=== PATIENT | male | born 1995 | race Caucasian/White ===

== ENCOUNTER 2021-04-26 12:57 | Inpatient (IN) | payer OTHER, SELFPAY ==
[2021-04-26] VITALS (15 sets, daily range): BP systolic 124–157; BP diastolic 69–93; PULSE 58–109; RESP 15–16; TEMP 36.2; O2SAT 97–100
--- NOTE | ~2021-04-26 | US_ITS ---
US abdomen limited INDICATION: Pancreatitis PROCEDURE: Realtime right upper abdominal ultrasound. COMPARISON: No prior studies for comparison. FINDINGS: The pancreas is normal without focal mass or pancreatic ductal dilation. Liver echotexture is normal without focal mass or intrahepatic biliary dilatation. There is normal directional flow i n the portal vein. The gallbladder is normal without stones, gallbladder wall thickening or pericholecystic fluid. Comm on bile duct measures 5.3 mm. No sonographic Tobias's sign. IMPRESSION: 1: Normal limited abdominal ultrasound. Reviewed, dictated and finalized at location A. [employer]
--- NOTE | ~2021-04-26 | CT_ITS ---
EXAMINATION: CT abdomen pelvis w con DATE: 04/26/2021 19:06 INDICATION: Left upper quadrant pain TECHNIQUE: Computed tomography (CT) of the abdomen and pelvis was performed with 100 cc Omnipaque 350 intravenous contrast. The dose-length product was 673.31 mGy-cm. Automated exposure control and iter ative reconstruction technique were employed. COMPARISON: None. FINDINGS: Lung bases are unremarkable. Heart size is normal. No significant pleural or pericardial ef fusion. The liver, spleen, adrenal glands and kidneys are unremarkable. There is mild inflammatory ch anges surrounding the pancreatic head, suspicious for acute pancreatitis. Gallbladder is present. Non obstructive bowel gas pattern. No acute osseous abnormality. No significant vascular abnormality. No lymphadenopathy. No free air or free fluid. IMPRESSION: 1. Subtle peripancreatic fatty infiltration near the pancreatic head, suspicious for pancreatitis. Co rrelate clinically. Reviewed, dictated and finalized at location A. OLOGY TECH IMPRESSION: 1. Subtle peripancreatic fatty infiltration near the pancreatic head, suspiciou s for pancreatitis. Correlate clinically.
--- NOTE | ~2021-04-26 | XR_ITS ---
EXAMINATION: XR chest 2V DATE: 04/26/2021 13:43 INDICATION: Lower chest pain TECHNIQUE: PA and lateral views of the chest are obtained. COMPARISON: None available FINDINGS: The lungs are free of acute opacities. There is no pleural effusion or pneumothorax. The ca rdiomediastinal silhouette is normal. The visualized bones and soft tissues are unremarkable. IMPRESSION: 1. No acute cardiopulmonary abnormality. Reviewed, dictated and finalized at location A. [employer]
--- NOTE | 2021-04-26 12:58 | ECG_ITS ---
Measurements Intervals [place] Rate: 107 P: 61 FL: 139 QRS: 44 QRSD: 82 T: 27 QT: 316 QTc: 423 Interpretive Statements SINUS TACHYCARDIA BASELINE ARTIFACT- I, III ABNORMAL ECG Electronically Signed On 04-26-2021 13:22:11 [employer] by Cassius Mejia D.O.
[2021-04-26 13:23] LABS: Basophils Absolute Auto 0.1 K/mm3 (0.0-0.1); Basophils Percent Auto 0.5 % (0.2-1.2); Eosinophils Absolute Auto 0.1 K/mm3 (0-0.3); Hematocrit 45.7 % (42.0-52.0); Hemoglobin 15.9 g/dL (14.0-18.0); Immature Granulocyte Absolute 0.04 K/mm3 (0.00-0.031); Immature Granulocyte Percent A 0.4 % (0-0.5); Lymphocytes Absolute Auto 1.25 K/mm3 (0.9-3.2); Lymphocytes Percent Auto 11.1 % (18.3-44.2); Mean Corpuscular HGB Conc 34.8 g/dl (32-36); Mean Corpuscular Hemoglobin 31.1 pg (26-34); Mean Corpuscular Volume 89.4 fl (80-100); Mean Platelet Volume 10.1 fl (7.4-10.4); Monocytes Absolute Auto 1.1 K/mm3 (0.1-0.6); Monocytes Percent Auto 9.6 % (2.6-8.5); Neutrophils Absolute Auto 8.7 K/mm3 (1.3-6.7); Neutrophils Percent Auto 77.4 % (45.5-73.1); Platelet Count Result 250 k/mm3 (150-375); Red Blood Count 5.11 M/mm3 (4.6-6.20); Red Cell Distribution Width 12.5 % (11.5-14.5); White Blood Count 11.2 K/mm3 (4.5-10.0)
[2021-04-26 13:32] LABS: Alanine Aminotransferase 16 U/L (4-50); Albumin Level 5.1 g/dL (3.5-5.1); Alkaline Phosphatase 106 U/L (38-126); Anion Gap 10 mmol/L (8-16); Aspartate Amino Transferase 24 U/L (17-59); Bilirubin,Total 1.3 mg/dL (0.2-1.3); Blood Urea Nitrogen 19 mg/dL (9-20); Calcium 9.9 mg/dL (8.4-10.2); Carbon Dioxide 24 mmol/L (22-30); Chloride 101 mmol/L (98-107); Estimated CRCL calculation 129 ml/min; Estimated Glomerular Filt Rate > 60; Glucose 109 mg/dL (65-110); Lipase 42 U/L (23-300); Sodium 135 mmol/L (137-145)
[2021-04-26 13:37] LABS: Prothrombin Time 13.2 Seconds (11.1-14.7)
[2021-04-26 13:44] LABS: Troponin I < 0.012 ng/mL (0.000-0.034)
--- NOTE | 2021-04-26 17:56 | ED.ABDPAIN ---
HPI - Abdominal Pain General Chief Complaint: Abdominal Pain <Genia Deng PA-C - Last Filed: 04/26/21 22:27> Stated Complaint: left upper abd pain <Genia Deng PA-C - Last Filed: 04/26/21 22:27> Time Seen by Provider: 04/26/21 16:46 <Genia Deng PA-C - Last Filed: 04/26/21 22:27> Source: patient <Genia Deng PA-C - Last Filed: 04/26/21 22:27> Mode of arrival: ambulatory <Genia Deng PA-C - Last Filed: 04/26/21 22:27> Limitations: no limitations <Genia Deng PA-C - Last Filed: 04/26/21 22:27> History of Present Illness HPI narrative: This is a 25 year old male that presents to the ER for upper abdominal pain present since yesterday. Reports left upper abdominal pain/chest pain. Reports the pain is a dull ache. Worse with deep breathing. Reports shortness of breath because of the pain. Denies fever, vomiting, diarrhea, or dysuria. <Genia Deng PA-C - Last Filed: 04/26/21 22:27> Related Data Allergies/Adverse Reactions: Allergies Allergy/AdvReac Type Severity Reaction Status Date / Time No Known Allergies Allergy Verified 04/26/21 18:20 <Genia Deng PA-C - Last Filed: 04/26/21 22:27> Review of Systems Review of Systems: CONSTITUTIONAL: Denies fever CARDIOVASCULAR: Reports chest pain RESPIRATORY: Reports dyspnea. GASTROINTESTINAL: Reports abdominal pain. Denies nausea, vomiting, or diarrhea. GENITOURINARY: Denies dysuria <Genia Deng PA-C - Last Filed: 04/26/21 22:27> All systems reviewed & are unremarkable except as noted in HPI and below <Genia Deng PA-C - Last Filed: 04/26/21 22:27> [facility] Past Medical History Medical History: Medical History (Updated 04/26/21 @ 22:11 by Genia Deng PA-C) No active medical problems <Genia Deng PA-C - Last Filed: 04/26/21 22:27> Social History Social History: Social History Smoking status: Never smoker <Genia Deng PA-C - Last Filed: 04/26/21 22:27> Exam Narrative: GENERAL: Well-appearing, well-nourished, and in no acute distress. HEAD: Normocephalic, atraumatic. EYES: EOMI. CHEST: Clear to auscultation. No respiratory distress. No wheezes rales or rhonchi HEART: Regular rate and rhythm. No murmur heard. Normal peripheral pulses. ABDOMEN: Soft, nondistended, normal active bowel sounds. Mild tenderness to palpation throughout the left-sided abdomen, without guarding EXTREMITIES: Normal range of motion. No edema. SKIN: Warm, dry, no rash. NEURO: No focal deficits. Alert and oriented x3. 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 Recommends reassess after morphine, if still experiencing pain patient may be admitted <Genia Deng PA-C - Last Filed: 04/26/21 22:27> Date: 04/26/21 <Genia Deng PA-C - Last Filed: 04/26/21 22:27> Vital Signs Vital signs: Vital Signs Temperature 36.2 C L 04/26/21 13:08 Pulse Rate 109 H 04/26/21 13:08 Respiratory Rate 16 04/26/21 13:08 Blood Pressure 150/93 H 04/26/21 13:08 Pulse Oximetry 99 04/26/21 13:08 Temperature 36.2 C L 04/26/21 13:08 Pulse Rate 65 04/26/21 22:12 Respiratory Rate 15 04/26/21 22:12 Blood Pressure 124/69 04/26/21 22:12 Pulse Oximetry 99 04/26/21 22:15 <Genia Deng PA-C - Last Filed: 04/26/21 22:27> Vital Signs Temperature 36.2 C L 04/26/21 13:08 Pulse Rate 109 H 04/26/21 13:08 Respiratory Rate 16 04/26/21 13:08 Blood Pressure 150/93 H 04/26/21 13:08 Pulse Oximetry 99 04/26/21 13:08 Temperature 36.2 C L 04/26/21 13:08 Pulse Rate 65 04/26/21 22:12 Respiratory Rate 15 04/26/21 22:12 Blood Pressure 124/69
[2021-04-26 18:26] LABS: D Dimer 0.39 ug/mL (<0.48)
[2021-04-26] MEDS: SODIUM CHLORIDE 0.9% IV 1,000 ML 999 ML IV CONT ×2 (18:28→23:23)
[2021-04-26] MEDS: FAMOTIDINE 20 MG/2 ML VIAL IV PUSH (18:29)
[2021-04-26 19:00] LABS: Troponin I < 0.012 ng/mL (0.000-0.034)
[2021-04-26] MEDS: MORPHINE SULFATE (*CRX) 4 MG/ML INJ IV PUSH (20:51)
[2021-04-26] MEDS: ONDANSETRON INJ 4 MG/2 ML VIAL IV PUSH (20:51)
[2021-04-26 21:14] LABS: Add Urine Microscopic? YES; Appearance Urine Clear (Clear); Bilirubin Urine Negative (Negative); Blood Urine Negative (Negative); Color Urine Yellow (Yellow); Glucose Urine UA Negative (Negative); Ketones Urine 1+ mg/dL (Negative); Leukocyte Esterase Ur Negative LEU/UL (Negative); Mucus Urine Heavy /lpf; Nitrate Urine Negative (Negative); Protein Urine Negative (Negative); RBC Urine 0-2 /hpf (0-2); Squamous Epithelial Cell Urine Occasional /hpf (Few); Urobilinogen Urine Negative mg/dL (<2.0)
[2021-04-26 21:17] LABS: Specific Grav Ur > 1.060 (1.001-1.035)
[2021-04-26] MEDS: KETOROLAC 30 MG/ML VIAL (*BKC) IV PUSH (23:23)
[2021-04-27] MEDS: SODIUM CHLORIDE 0.9% IV 1,000 ML 125 ML IV CONT ×3 (00:54→16:29)
--- NOTE | 2021-04-27 00:56 | ADMGEN ---
This patient, Jesse Avila, was admitted to Medical Room 253-01. Patient/family oriented to hospital policies and general routines including ID bracelet, bed and alarms, visiting hours, pain management, procedures, bathroom and other care routines, personal items, smoking policy, room service/diet, and visiting hours. Information on how to activate the Rapid Response Team has been discussed. Patient/Family are encouraged to report perceived risks to care and to ask questions if they do not understand what they are told or what they should do.
[2021-04-27 01:33] VITALS: BMI 28.0
[2021-04-27 01:35] VITALS: BP 124/62; PULSE 64; RESP 20; TEMP 37; O2SAT 99
[2021-04-27 06:00] VITALS: BP 137/74; PULSE 83; RESP 21; TEMP 36.8; O2SAT 100
[2021-04-27] MEDS: MORPHINE SULFATE (*CRX) 4 MG/ML INJ IV PUSH (08:40)
[2021-04-27 09:27] LABS: Basophils Absolute Auto 0.1 K/mm3 (0.0-0.1); Basophils Percent Auto 0.4 % (0.2-1.2); Eosinophils Absolute Auto 0.1 K/mm3 (0-0.3); Eosinophils Percent Auto 0.7 % (0-4.4); Hematocrit 43.2 % (42.0-52.0); Hemoglobin 14.6 g/dL (14.0-18.0); Immature Granulocyte Absolute 0.04 K/mm3 (0.00-0.031); Immature Granulocyte Percent A 0.3 % (0-0.5); Lymphocytes Absolute Auto 1.47 K/mm3 (0.9-3.2); Lymphocytes Percent Auto 10.9 % (18.3-44.2); Mean Corpuscular HGB Conc 33.8 g/dl (32-36); Mean Corpuscular Hemoglobin 31.1 pg (26-34); Mean Corpuscular Volume 92.1 fl (80-100); Mean Platelet Volume 10.1 fl (7.4-10.4); Monocytes Absolute Auto 1.3 K/mm3 (0.1-0.6); Monocytes Percent Auto 9.8 % (2.6-8.5); Neutrophils Absolute Auto 10.5 K/mm3 (1.3-6.7); Neutrophils Percent Auto 77.9 % (45.5-73.1); Platelet Count Result 227 k/mm3 (150-375); Red Blood Count 4.69 M/mm3 (4.6-6.20); Red Cell Distribution Width 12.5 % (11.5-14.5); White Blood Count 13.4 K/mm3 (4.5-10.0)
[2021-04-27 09:36] LABS: Alanine Aminotransferase 14 U/L (4-50); Albumin Level 4.4 g/dL (3.5-5.1); Alkaline Phosphatase 97 U/L (38-126); Anion Gap 9 mmol/L (8-16); Aspartate Amino Transferase 23 U/L (17-59); Bilirubin,Total 1.4 mg/dL (0.2-1.3); Blood Urea Nitrogen 15 mg/dL (9-20); Calcium 9.3 mg/dL (8.4-10.2); Carbon Dioxide 20 mmol/L (22-30); Chloride 106 mmol/L (98-107); Estimated CRCL calculation 129 ml/min; Estimated Glomerular Filt Rate > 60; Glucose 99 mg/dL (65-110); Lipase 132 U/L (23-300); Potassium 3.9 mmol/L (3.4-5.0); Sodium 135 mmol/L (137-145)
[2021-04-27] MEDS: KETOROLAC 30 MG/ML VIAL (*BKC) IV PUSH (10:48)
--- NOTE | 2021-04-27 12:50 | PM.IMHP ---
H&P: HPI History of Present Illness Date/Time: 04/27/21 12:50 Pt is a previously healthy 25 yo male who presented to the hospital for evaluation of abdominal pain x 2 days. Pt states 2 days ago in the evening he was sitting on his couch when he developed epigastric pain which has been constant since that time. Pain is described as throbbing and is waxing and waning, sometimes radiates to his lower abdomen. Pain is worse w/ deep inspiration. No nausea, vomiting, diarrhea, fevers. No hx of gallstones or etoh use. No family hx of pancreatitis. Pt was found to have findings on CT suspicious for pancreatitis and is being admitted in this setting. Chief Complaint: abdominal pain Review of Systems Review of Systems: General: Denies fevers, chills, bodyaches Eyes: Denies vision changes or eye pain ENT: Denies nasal congestion or sore throat Respiratory: Denies cough or shortness of breath Cardiovascular: + chest pain w/ deep inspiration, denies palpitations or lower extremity edema Gastrointestinal: + abdominal pain, denies vomiting or diarrhea Genitourinary: Denies dysuria or urinary frequency Musculoskeletal: Denies back pain or muscle aches Neurological: Denies headache, paraesthesias, or motor weakness Integumentary: Denies rash or other skin lesions PMFSH Past Medical History Medical History No active medical problems Surgical History Surgical History (Updated 04/27/21 @ 12:58 by Leena Zamora PA-C) H/O hand surgery Family History Family History Other Unknown family medical history Social History Social History (Updated 04/27/21 @ 12:59 by Leena Zamora PA-C) Smoking status: Never smoker Alcohol intake: never Alcohol use details: very rare, maybe 1-2 beers once or twice per year Substance use: current Substance use type: marijuana Last use: 04/23/21 Spiritual care concerns: No Meds Home Medications and Allergies Home Medications Medication Instructions Recorded Confirmed Type No Home Medications 04/27/21 04/27/21 History Allergies Allergy/AdvReac Type Severity Reaction Status Date / Time No Known Allergies Allergy Verified 04/27/21 00:53 Vital Signs Vital Signs - 24 hr 04/26/21 13:08 04/26/21 15:06 04/26/21 18:36 Temperature 97.2 F L Pulse Rate 109 H 95 Respiratory Rate 16 Blood Pressure 150/93 H 157/86 H Pulse Oximetry 99 100 99 04/26/21 18:37 04/26/21 19:08 04/26/21 19:52 Temperature Pulse Rate Respiratory Rate Blood Pressure 129/87 Pulse Oximetry 99 100 98 04/26/21 20:01 04/26/21 20:26 04/26/21 20:30 Temperature Pulse Rate Respiratory Rate Blood Pressure Pulse Oximetry 98 97 100 04/26/21 21:03 04/26/21 21:23 04/26/21 21:31 Temperature Pulse Rate 58 L Respiratory Rate 16 Blood Pressure Pulse Oximetry 98 98 99 04/26/21 21:52 04/26/21 22:12 04/26/21 22:15 Temperature Pulse Rate 65 Respiratory Rate 15 Blood Pressure 124/69 Pulse Oximetry 98 99 99 04/27/21 01:35 04/27/21 06:00 Temperature 98.6 F 98.2 F Pulse Rate 64 83 Respiratory Rate 20 21 H Blood Pressure 124/62 137/74 Pulse Oximetry 99 100 Exam Narrative: General: No acute distress, non toxic appearing Eyes: PERRL, no scleral icterus HEENT: NCAT, external ears normal, MMM Respiratory: No respiratory distress, Lungs CTA bilaterally, no wheezing Cardiovascular: RRR, no murmur Abdominal: Soft, mildly tender diffusely, non distended, no rebound or guarding Musculoskeletal: Moves all 4 extremities, no edema Neurological: A/Ox3, speech normal, no facial asymmetry Skin: Warm, dry, no rashes Psychiatric: Normal affect, normal mood H&P: Results Labs Labs: Short CBC 04/26/21 04/27/21 Range/Units 13:10 09:05 WBC 11.2 H 13.4 H (4.5-10.0) K/mm3 Hgb 15.9 14.6 (14.0-18.
[2021-04-27 13:35] VITALS: BP 126/78; PULSE 81; RESP 20; TEMP 37.1; O2SAT 100
[2021-04-27] MEDS: HYDROmorphone HCL INJ (*CRX) 1 MG/ML SYR IV PUSH ×2 (14:27→18:33)
[2021-04-27 20:10] VITALS: BP 131/60; PULSE 119; RESP 20; TEMP 38.1; O2SAT 99
[2021-04-28] MEDS: SODIUM CHLORIDE 0.9% IV 1,000 ML 125 ML IV CONT ×3 (01:07→16:44)
[2021-04-28] MEDS: HYDROmorphone HCL INJ (*CRX) 1 MG/ML SYR IV PUSH ×5 (02:54→21:32)
[2021-04-28 04:20] VITALS: BP 125/63; PULSE 102; RESP 20; TEMP 36.7; O2SAT 99
[2021-04-28 05:23] LABS: Basophils Percent Auto 0.3 % (0.2-1.2); Eosinophils Percent Auto 0.1 % (0-4.4); Hematocrit 38.5 % (42.0-52.0); Hemoglobin 13.1 g/dL (14.0-18.0); Immature Granulocyte Absolute 0.04 K/mm3 (0.00-0.031); Immature Granulocyte Percent A 0.3 % (0-0.5); Lymphocytes Absolute Auto 0.67 K/mm3 (0.9-3.2); Lymphocytes Percent Auto 5.6 % (18.3-44.2); Mean Corpuscular Hemoglobin 30.4 pg (26-34); Mean Corpuscular Volume 89.3 fl (80-100); Mean Platelet Volume 10.1 fl (7.4-10.4); Monocytes Absolute Auto 1.2 K/mm3 (0.1-0.6); Neutrophils Absolute Auto 10.1 K/mm3 (1.3-6.7); Neutrophils Percent Auto 83.7 % (45.5-73.1); Platelet Count Result 195 k/mm3 (150-375); Red Blood Count 4.31 M/mm3 (4.6-6.20); Red Cell Distribution Width 11.9 % (11.5-14.5)
[2021-04-28 05:39] LABS: Alanine Aminotransferase 11 U/L (4-50); Alkaline Phosphatase 85 U/L (38-126); Anion Gap 10 mmol/L (8-16); Aspartate Amino Transferase 21 U/L (17-59); Bilirubin,Total 1.3 mg/dL (0.2-1.3); Blood Urea Nitrogen 11 mg/dL (9-20); Calcium 8.8 mg/dL (8.4-10.2); Carbon Dioxide 19 mmol/L (22-30); Chloride 101 mmol/L (98-107); Estimated CRCL calculation 144 ml/min; Estimated Glomerular Filt Rate > 60; Glucose 90 mg/dL (65-110); Lipase 334 U/L (23-300); Potassium 3.6 mmol/L (3.4-5.0); Sodium 130 mmol/L (137-145)
[2021-04-28] MEDS: ONDANSETRON INJ 4 MG/2 ML VIAL IV PUSH (08:58)
--- NOTE | 2021-04-28 12:41 | PM.IMPN ---
Progress Note: A&P Assessment and Plan (1) Acute pancreatitis: Qualifiers: Acute pancreatitis complication: no infection or necrosis Pancreatitis type: unspecified pancreatitis type Qualified Code(s): K85.90 - Acute pancreatitis without necrosis or infection, unspecified Code(s): K85.90 - Acute pancreatitis without necrosis or infection, unspecified Status: Acute Assessment and Plan: Pt to continue to be NPO with iv fluids and pain control Continue to monitor lipase levels, and advance diet and dc in 1-2 days time No other significant medical problems Follow lipid panel. Subjective Date/time seen: 04/28/21 12:41 Interval history: Pt here for pancreatitis, lipase is 300 today pt still having some abdominal pains in RUQ. Denies alcholol use US GB shows no Gallstones, I awilda order a ipid panel to check his triglycerides, hopeful DC in 1-2 days time Review of Systems Review of Systems: All systems reviewed & are unremarkable except as noted in HPI and below Exam Const: General: cooperative and healthy appearing; No in distress Nutritional Appearance: overweight Orientation/consciousness: oriented to person HENMT: Head: normal to inspection Resp: Effort & Inspection: no respiratory distress Auscultation: no rhonchi and no wheezes Cardio: Rate: regular rate Rhythm: regular rhythm GI: Inspection: normal to inspection GI Palp: Yes abdominal tenderness (over RUQ ), No Abdominal aortic bruit present, Yes Soft to palpation, No Firmness to palpation present (GI), Yes Tenderness to palpation present (GI), No Guarding due to palpation present (GI), No Rigid due to palpation, No No hepatosplenomegaly present, No Hepatosplenomegaly present, No Hepatomegaly present, No Splenomegaly present, No Hernia present, No Palpable mass present, No Pulsatile mass present, No Aortic enlargement present, No Ascites present, No Carnett's sign positive, No Rebound tenderness present, No Bladder palpation abnormal and No Other GI palpation findings present Auscultation: normal bowel sounds Neuro: General: oriented to person Objective Data Vital Signs Vital Signs: Vital Signs - 24 hr 04/27/21 13:35 04/27/21 20:10 04/28/21 04:20 Temperature 37.1 C 38.1 C H 36.7 C Pulse Rate 81 119 H 102 H Respiratory Rate 20 20 20 Blood Pressure 126/78 131/60 125/63 Pulse Oximetry 100 99 99 Intake/Output Intake/Output: Intake & Output 04/25/21 04/26/21 04/27/21 04/28/21 23:59 23:59 23:59 23:59 Intake Total 1100 2200 2000 Output Total 400 Balance 1100 1800 2000 Meds/Results Medications: Active Medications Generic Name Dose Route Start Last Admin Trade Name Freq PRN Reason Stop Dose Admin Hydromorphone HCl 1 mg 04/27/21 10:30 04/28/21 08:52 Hydromorphone Hcl Inj (*Crx) 1 Mg/Ml Syr IV PUSH 1 mg Q4H PRN Administration Pain Rated 7-10 Sodium Chloride 1,000 mls @ 125 mls/hr 04/26/21 22:05 04/28/21 08:51 Normal Saline Iv IV CONT 125 mls/hr .Q8H MARYSOL Administration Ondansetron HCl 4 mg 04/26/21 22:01 04/28/21 08:58 Ondansetron Inj 4 Mg/2 Ml Vial IV PUSH 4 mg Q4H PRN Administration Nausea Radiology Results: ITS Impressions Chest X-Ray 04/26/21 14:02 IMPRESSION: 1. No acute cardiopulmonary abnormality. Abdomen/Pelvis CT 04/26/21 19:09 IMPRESSION: 1. Subtle peripancreatic fatty infiltration near the pancreatic head, suspicious for pancreatitis. Correlate clinically. Abdomen Ultrasound 04/27/21 15:20 IMPRESSION: 1: Normal limited abdominal ultrasound. Labs Labs: Laboratory Results - last 24 hr 04/28/21 04/28/21 04:58 04:58 WBC 12.0 H RBC 4.31 L Hgb 13.1 L Hct 38.5 L MCV 89.3 MCH 30.4 MCHC 34.0 RDW 11.9 Plt Count 195 MPV 10.1 Immature Gran % (Auto) 0.3 Neut % (Auto) 83.7 H Lymph % (Auto) 5.6 L [place] % (Auto) 10.0 H Eos % (Auto) 0.1 Baso % (Auto) 0.3 Lymph # (Auto) 0.67 L
[2021-04-28 15:00] VITALS: BP 127/68; PULSE 90; RESP 20; TEMP 36.6; O2SAT 99
[2021-04-28] MEDS: ACETAMINOPHEN 325 MG TABLET 650 MG PO (17:09)
[2021-04-28 19:54] VITALS: BP 122/57; PULSE 63; RESP 16; TEMP 36.4; O2SAT 100
[2021-04-29] MEDS: SODIUM CHLORIDE 0.9% IV 1,000 ML 125 ML IV CONT ×3 (00:45→18:05)
[2021-04-29] MEDS: HYDROmorphone HCL INJ (*CRX) 1 MG/ML SYR IV PUSH ×4 (01:34→21:24)
[2021-04-29 03:55] VITALS: BP 123/65; PULSE 77; RESP 17; TEMP 36.6; O2SAT 98
[2021-04-29 05:50] LABS: Cholesterol 129 mg/dL (0-200); HDL Direct 24 mg/dL; Lipase 76 U/L (23-300); Triglycerides 95 mg/dL (<150)
[2021-04-29 06:01] LABS: LDL Cholesterol Direct 73 mg/dL
[2021-04-29] MEDS: ENOXAPARIN 40 MG/0.4 ML SYRINGE SUB-Q (09:17)
[2021-04-29 09:20] LABS: Basophils Absolute Auto 0.1 K/mm3 (0.0-0.1); Basophils Percent Auto 0.5 % (0.2-1.2); Eosinophils Absolute Auto 0.2 K/mm3 (0-0.3); Eosinophils Percent Auto 1.4 % (0-4.4); Hematocrit 38.6 % (42.0-52.0); Hemoglobin 13.1 g/dL (14.0-18.0); Immature Granulocyte Absolute 0.03 K/mm3 (0.00-0.031); Immature Granulocyte Percent A 0.3 % (0-0.5); Lymphocytes Absolute Auto 1.11 K/mm3 (0.9-3.2); Lymphocytes Percent Auto 10.2 % (18.3-44.2); Mean Corpuscular HGB Conc 33.9 g/dl (32-36); Mean Corpuscular Hemoglobin 31.1 pg (26-34); Mean Corpuscular Volume 91.7 fl (80-100); Mean Platelet Volume 10.9 fl (7.4-10.4); Monocytes Absolute Auto 1.2 K/mm3 (0.1-0.6); Monocytes Percent Auto 11.1 % (2.6-8.5); Neutrophils Absolute Auto 8.3 K/mm3 (1.3-6.7); Neutrophils Percent Auto 76.5 % (45.5-73.1); Platelet Count Result 195 k/mm3 (150-375); Red Blood Count 4.21 M/mm3 (4.6-6.20); Red Cell Distribution Width 12.3 % (11.5-14.5); White Blood Count 10.9 K/mm3 (4.5-10.0)
[2021-04-29 09:29] LABS: Alanine Aminotransferase 8 U/L (4-50); Albumin Level 3.4 g/dL (3.5-5.1); Alkaline Phosphatase 80 U/L (38-126); Anion Gap 10 mmol/L (8-16); Aspartate Amino Transferase 20 U/L (17-59); Bilirubin,Total 0.8 mg/dL (0.2-1.3); Blood Urea Nitrogen 8 mg/dL (9-20); Carbon Dioxide 21 mmol/L (22-30); Chloride 104 mmol/L (98-107); Estimated CRCL calculation 144 ml/min; Estimated Glomerular Filt Rate > 60; Glucose 90 mg/dL (65-110); Potassium 4.1 mmol/L (3.4-5.0); Sodium 135 mmol/L (137-145)
--- NOTE | 2021-04-29 12:47 | PM.IMPN ---
Progress Note: A&P Assessment and Plan (1) Acute pancreatitis: Qualifiers: Acute pancreatitis complication: no infection or necrosis Pancreatitis type: unspecified pancreatitis type Qualified Code(s): K85.90 - Acute pancreatitis without necrosis or infection, unspecified Code(s): K85.90 - Acute pancreatitis without necrosis or infection, unspecified Status: Acute Assessment and Plan: -as noted on CT abd/pelv -lipase and LFTs WNL, lipid panel WNL, RUQ US WNL -etiology unclear, no etoh use, no gallstones, no family history, does not take any medications -Will transition to clear liquids today as tolerated -Slow down IVF, dc when tolerating clears well -Pain medication as needed -Continue to monitor lipase levels and advance diet Subjective Date/time seen: 04/29/21 12:47 Interval history: Previously healthy 25 yo male admitted for acute pancreatitis. Overall he states he is doing better, however early this morning he had sudden onset very sharp epigastric pain. It has mostly resolved at this time. No nausea/vomiting. He is still NPO with ice chips only. Review of Systems Review of Systems: General: Denies fevers, chills, bodyaches Eyes: Denies vision changes or eye pain ENT: Denies nasal congestion or sore throat Respiratory: Denies cough or shortness of breath Cardiovascular: deneis chest pain, denies palpitations or lower extremity edema Gastrointestinal: + abdominal pain, denies vomiting or diarrhea, no BM yet Genitourinary: Denies dysuria or urinary frequency Musculoskeletal: Denies back pain or muscle aches Neurological: Denies headache, paraesthesias, or motor weakness Integumentary: Denies rash or other skin lesions Exam Narrative: General: No acute distress, non toxic appearing Eyes: PERRL, no scleral icterus HEENT: NCAT, external ears normal, MMM Respiratory: No respiratory distress, Lungs CTA bilaterally, no wheezing Cardiovascular: RRR, no murmur Abdominal: Soft, mild epigastric tenderness, non distended, no rebound or guarding Musculoskeletal: Moves all 4 extremities, no edema Neurological: A/Ox3, speech normal, no facial asymmetry Skin: Warm, dry, no rashes Psychiatric: Normal affect, normal mood Objective Data Vital Signs Vital Signs: Vital Signs - 24 hr 04/28/21 15:00 04/28/21 19:54 04/29/21 03:55 Temperature 97.8 F 97.5 F L 97.9 F Pulse Rate 90 63 77 Respiratory Rate 20 16 17 Blood Pressure 127/68 122/57 L 123/65 Pulse Oximetry 99 100 98 Intake/Output Intake/Output: Intake & Output 04/26/21 04/27/21 04/28/21 04/29/21 23:59 23:59 23:59 23:59 Intake Total 1100 2200 3000 2000 Output Total 400 Balance 1100 1800 3000 2000 Meds/Results Medications: Active Medications Generic Name Dose Route Start Last Admin Trade Name Freq PRN Reason Stop Dose Admin Acetaminophen 650 mg 04/28/21 16:59 04/28/21 17:09 Acetaminophen 325 Mg Tablet PO 650 mg Q6H PRN Administration Mild Pain (1-3) or Fever Enoxaparin Sodium 40 mg 04/29/21 09:00 04/29/21 09:17 Enoxaparin 40 Mg/0.4 Ml Syringe SUB-Q 40 mg DAILY MARYSOL Administration Hydromorphone HCl 1 mg 04/27/21 10:30 04/29/21 11:19 Hydromorphone Hcl Inj (*Crx) 1 Mg/Ml Syr IV PUSH 1 mg Q4H PRN Administration Pain Rated 7-10 Sodium Chloride 1,000 mls @ 125 mls/hr 04/26/21 22:05 04/29/21 09:16 Normal Saline Iv IV CONT 125 mls/hr .Q8H MARYSOL Administration Ondansetron HCl 4 mg 04/26/21 22:01 04/28/21 08:58 Ondansetron Inj 4 Mg/2 Ml Vial IV PUSH 4 mg Q4H PRN Administration Nausea Radiology Results: ITS Impressions Chest X-Ray 04/26/21 14:02 IMPRESSION: 1. No acute cardiopulmonary abnormality. Abdomen/Pelvis CT 04/26/21 19:09 IMPRESSION: 1. Subtle peripancreatic fatty infiltration near the pancreatic head, suspicious for pancreatitis. Correlate clinically. Abdomen Ultrasound 04/27/21 15:20 IMPRESSION: 1: N
[2021-04-29 19:00] VITALS: BP 127/68; PULSE 80; RESP 16; TEMP 36.4; O2SAT 99
[2021-04-29] MEDS: ACETAMINOPHEN 325 MG TABLET 650 MG PO (21:29)
[2021-04-30 04:15] VITALS: BP 127/70; PULSE 99; RESP 14; TEMP 36.4; O2SAT 99
[2021-04-30] MEDS: HYDROmorphone HCL INJ (*CRX) 1 MG/ML SYR IV PUSH (04:23)
[2021-04-30] MEDS: SODIUM CHLORIDE 0.9% IV 1,000 ML 125 ML IV CONT ×3 (04:25→22:08)
[2021-04-30 07:01] LABS: Basophils Absolute Auto 0.1 K/mm3 (0.0-0.1); Basophils Percent Auto 0.5 % (0.2-1.2); Eosinophils Absolute Auto 0.5 K/mm3 (0-0.3); Eosinophils Percent Auto 4.7 % (0-4.4); Hematocrit 38.1 % (42.0-52.0); Hemoglobin 13.1 g/dL (14.0-18.0); Immature Granulocyte Absolute 0.05 K/mm3 (0.00-0.031); Immature Granulocyte Percent A 0.5 % (0-0.5); Lymphocytes Absolute Auto 1.18 K/mm3 (0.9-3.2); Lymphocytes Percent Auto 12.2 % (18.3-44.2); Mean Corpuscular HGB Conc 34.4 g/dl (32-36); Mean Corpuscular Hemoglobin 30.4 pg (26-34); Mean Corpuscular Volume 88.4 fl (80-100); Mean Platelet Volume 10.1 fl (7.4-10.4); Monocytes Percent Auto 10.3 % (2.6-8.5); Neutrophils Absolute Auto 6.9 K/mm3 (1.3-6.7); Neutrophils Percent Auto 71.8 % (45.5-73.1); Platelet Count Result 245 k/mm3 (150-375); Red Blood Count 4.31 M/mm3 (4.6-6.20); White Blood Count 9.7 K/mm3 (4.5-10.0)
[2021-04-30 07:06] LABS: Alanine Aminotransferase 10 U/L (4-50); Albumin Level 3.7 g/dL (3.5-5.1); Alkaline Phosphatase 98 U/L (38-126); Anion Gap 10 mmol/L (8-16); Aspartate Amino Transferase 19 U/L (17-59); Blood Urea Nitrogen 7 mg/dL (9-20); Calcium 8.9 mg/dL (8.4-10.2); Carbon Dioxide 23 mmol/L (22-30); Chloride 100 mmol/L (98-107); Estimated CRCL calculation 163 ml/min; Estimated Glomerular Filt Rate > 60; Glucose 88 mg/dL (65-110); Lipase 56 U/L (23-300); Potassium 3.4 mmol/L (3.4-5.0); Sodium 133 mmol/L (137-145)
[2021-04-30] MEDS: ENOXAPARIN 40 MG/0.4 ML SYRINGE SUB-Q (09:33)
--- NOTE | 2021-04-30 11:04 | PM.IMPN ---
Progress Note: A&P Assessment and Plan (1) Acute pancreatitis: Qualifiers: Acute pancreatitis complication: no infection or necrosis Pancreatitis type: unspecified pancreatitis type Qualified Code(s): K85.90 - Acute pancreatitis without necrosis or infection, unspecified Code(s): K85.90 - Acute pancreatitis without necrosis or infection, unspecified Status: Acute Assessment and Plan: -as noted on CT abd/pelv -lipase and LFTs WNL, lipid panel WNL, RUQ US WNL -etiology unclear, no etoh use, no gallstones, no family history, does not take any medications -Will transition to clear liquids as tolerated -Slow down IVF, dc when tolerating clears well -Pain medication as needed, transition to oral when appropriate -Continue to monitor lipase levels and advance diet Subjective Date/time seen: 04/30/21 11:04 Interval history: Previously healthy 25 yo male admitted for acute pancreatitis. Pt is feeling better at this time. He had a little bit of pain this morning but this has resolved. He was switched to clears yesterday but states he only had a few sips. He will try to push more liquids today. No nausea, vomiting. Has not had a BM yet. Review of Systems Review of Systems: General: Denies fevers Eyes: Denies vision changes ENT: Denies nasal congestion or sore throat Respiratory: Denies cough or shortness of breath Cardiovascular: Denies chest pain or lower extremity edema Gastrointestinal: + abdominal pain, denies vomiting or diarrhea Genitourinary: Denies dysuria Musculoskeletal: Denies back pain Neurological: Denies headache or motor weakness Integumentary: Denies rash Exam Narrative: General: No acute distress, non toxic appearing Eyes: PERRL, no scleral icterus HEENT: NCAT, external ears normal, MMM Respiratory: No respiratory distress, Lungs CTA bilaterally, no wheezing Cardiovascular: RRR, no murmur Abdominal: Soft, mild epigastric tenderness, non distended, no rebound or guarding Musculoskeletal: Moves all 4 extremities, no edema Neurological: A/Ox3, speech normal, no facial asymmetry Skin: Warm, dry, no rashes Psychiatric: Normal affect, normal mood Objective Data Vital Signs Vital Signs: Vital Signs - 24 hr 04/29/21 19:00 04/30/21 04:15 Temperature 97.6 F 97.5 F L Pulse Rate 80 99 Respiratory Rate 16 14 Blood Pressure 127/68 127/70 Pulse Oximetry 99 99 Intake/Output Intake/Output: Intake & Output 04/27/21 04/28/21 04/29/21 04/30/21 23:59 23:59 23:59 23:59 Intake Total 2200 3000 3750 1000 Output Total 400 Balance 1800 3000 3750 1000 Meds/Results Medications: Active Medications Generic Name Dose Route Start Last Admin Trade Name Freq PRN Reason Stop Dose Admin Acetaminophen 650 mg 04/28/21 16:59 04/29/21 21:29 Acetaminophen 325 Mg Tablet PO 650 mg Q6H PRN Administration Mild Pain (1-3) or Fever Enoxaparin Sodium 40 mg 04/29/21 09:00 04/30/21 09:33 Enoxaparin 40 Mg/0.4 Ml Syringe SUB-Q 40 mg DAILY MARYSOL Administration Hydromorphone HCl 1 mg 04/27/21 10:30 04/30/21 04:23 Hydromorphone Hcl Inj (*Crx) 1 Mg/Ml Syr IV PUSH 1 mg Q4H PRN Administration Pain Rated 7-10 Sodium Chloride 1,000 mls @ 75 mls/hr 04/26/21 22:05 04/30/21 04:25 Normal Saline Iv IV CONT 125 mls/hr .[id number] MARYSOL Administration Ondansetron HCl 4 mg 04/26/21 22:01 04/28/21 08:58 Ondansetron Inj 4 Mg/2 Ml Vial IV PUSH 4 mg Q4H PRN Administration Nausea Radiology Results: ITS Impressions Chest X-Ray 04/26/21 14:02 IMPRESSION: 1. No acute cardiopulmonary abnormality. Abdomen/Pelvis CT 04/26/21 19:09 IMPRESSION: 1. Subtle peripancreatic fatty infiltration near the pancreatic head, suspicious for pancreatitis. Correlate clinically. Abdomen Ultrasound 04/27/21 15:20 IMPRESSION: 1: Normal limited abdominal ultrasound. Labs Labs: Laboratory Results - la
[2021-04-30 14:00] VITALS: BP 134/64; PULSE 69; RESP 16; TEMP 36.7; O2SAT 100
[2021-04-30 20:39] VITALS: BP 135/69; PULSE 83; RESP 18; TEMP 36.6; O2SAT 100
[2021-04-30] MEDS: oxyCODONE/ACETAMINOPHEN (*CRX) 5-325 MG TABLET 1 TABLET PO (22:08)
[2021-05-01 04:33] VITALS: BP 120/62; PULSE 66; RESP 16; TEMP 37.1; O2SAT 98
[2021-05-01 05:18] LABS: Basophils Percent Auto 0.4 % (0.2-1.2); Eosinophils Absolute Auto 0.7 K/mm3 (0-0.3); Eosinophils Percent Auto 6.9 % (0-4.4); Hematocrit 37.1 % (42.0-52.0); Immature Granulocyte Absolute 0.04 K/mm3 (0.00-0.031); Immature Granulocyte Percent A 0.4 % (0-0.5); Lymphocytes Absolute Auto 1.36 K/mm3 (0.9-3.2); Lymphocytes Percent Auto 14.5 % (18.3-44.2); Mean Corpuscular Hemoglobin 30.7 pg (26-34); Mean Corpuscular Volume 87.5 fl (80-100); Mean Platelet Volume 9.7 fl (7.4-10.4); Monocytes Percent Auto 10.3 % (2.6-8.5); Neutrophils Absolute Auto 6.4 K/mm3 (1.3-6.7); Neutrophils Percent Auto 67.5 % (45.5-73.1); Platelet Count Result 275 k/mm3 (150-375); Red Blood Count 4.24 M/mm3 (4.6-6.20); White Blood Count 9.4 K/mm3 (4.5-10.0)
[2021-05-01 05:28] LABS: Alanine Aminotransferase 11 U/L (4-50); Albumin Level 3.6 g/dL (3.5-5.1); Alkaline Phosphatase 113 U/L (38-126); Anion Gap 10 mmol/L (8-16); Aspartate Amino Transferase 21 U/L (17-59); Blood Urea Nitrogen 6 mg/dL (9-20); Calcium 8.9 mg/dL (8.4-10.2); Carbon Dioxide 27 mmol/L (22-30); Chloride 100 mmol/L (98-107); Estimated CRCL calculation 163 ml/min; Estimated Glomerular Filt Rate > 60; Glucose 96 mg/dL (65-110); Lipase 48 U/L (23-300); Potassium 3.3 mmol/L (3.4-5.0); Sodium 137 mmol/L (137-145)
[2021-05-01] MEDS: ENOXAPARIN 40 MG/0.4 ML SYRINGE SUB-Q (08:17)
--- NOTE | 2021-05-01 09:28 | PM.DS ---
DS: Admitting Diagnosis Discharge Date 05/01/21 Admitting Diagnosis pancreatitis DS: Discharge Diagnosis Discharge Diagnosis (1) Acute pancreatitis: Qualifiers: Acute pancreatitis complication: no infection or necrosis Pancreatitis type: unspecified pancreatitis type Qualified Code(s): K85.90 - Acute pancreatitis without necrosis or infection, unspecified Code(s): K85.90 - Acute pancreatitis without necrosis or infection, unspecified Status: Acute Assessment and Plan: -as noted on CT abd/pelv -lipid panel and LFTs WNL -lipase initially mildly elevated but now normalized -RUQ US WNL without gallstones -etiology unclear, no etoh use, no gallstones, no family history, does not take any medications -pt was given IVF and pain medication as needed. Diet was advanced slowly. At this time he is tolerating a low fat diet without difficulty. He is having normal bowel movements. -vitals stable. labs unremarkable. pt being discharged home in stable condition. He was given counseling on avoidance of etoh in the future to avoid possible recurrence. All questions and concerns were addressed. (2) Hypokalemia: Code(s): E87.6 - Hypokalemia Status: Acute Assessment and Plan: -very mild at 3.3 -will give one dose of 40 PO KCL prior to discharge -repeat labs in 1 week DS: Summary Hospital Course Reason for hospitalization: Previously healthy 25 yo male admitted for acute pancreatitis. Please see HPI for further details. Hospital Course: please see above for details of hospital course Status at Discharge Cognitive/behavioral status at discharge: stable Functional status at discharge: independent ambulation Overall status at discharge: patient is progressing back to baseline Time Spent with Patient Time attestation: Total time spent providing and/or coordinating discharge services: 32 Time spent: Greater than 30 minutes Exam Narrative: General: No acute distress, non toxic appearing Eyes: PERRL, no scleral icterus HEENT: NCAT, external ears normal, MMM Respiratory: No respiratory distress, Lungs CTA bilaterally, no wheezing Cardiovascular: RRR, no murmur Abdominal: Soft, non tender, non distended, no rebound or guarding Musculoskeletal: Moves all 4 extremities, no edema Neurological: A/Ox3, speech normal, no facial asymmetry Skin: Warm, dry, no rashes Psychiatric: Normal affect, normal mood DS: Data Data Completed and Pending Labs on day of discharge: Labs from last 24 hours 05/01/21 05/01/21 04:43 04:43 WBC 9.4 RBC 4.24 L Hgb 13.0 L Hct 37.1 L MCV 87.5 MCH 30.7 MCHC 35.0 RDW 12.0 Plt Count 275 MPV 9.7 Immature Gran % (Auto) 0.4 Neut % (Auto) 67.5 Lymph % (Auto) 14.5 L [place] % (Auto) 10.3 H Eos % (Auto) 6.9 H Baso % (Auto) 0.4 Lymph # (Auto) 1.36 [place] # (Auto) 1.0 H Eos # (Auto) 0.7 H Baso # (Auto) 0.0 Abs Immat Gran (auto) 0.04 H Absolute Neuts (auto) 6.4 Absolute Nucleated RBC 0.0 Nucleated RBC % 0.0 Sodium 137 Potassium 3.3 L Chloride 100 Carbon Dioxide 27 Anion Gap 10 BUN 6 L Creatinine 0.70 Estim Creat Clear Calc 163 Estimated GFR > 60 Glucose 96 Calcium 8.9 Total Bilirubin 1.0 AST 21 ALT 11 Alkaline Phosphatase 113 Total Protein 6.0 L Albumin 3.6 Lipase 48 Discharge Plan Discharge Attending physician on discharge: Esthela Brown Consulting providers: Genia Deng Discharging Clinician: Leena Zamora Anticipated Discharge Date/Time: 05/01/21 09:35 Patient Disposition: Home, Self-Care Activity: may shower Diet: low fat Discharge Instructions: You may take tylenol or ibuprofen as needed for pain. You may also take the hydrocodone provided for breakthrough pain. Please be sure to stay hydrated with plenty of fluids. You should maintain a low fat diet and avoid alcohol to prevent recurrence of your evans
[2021-05-01] MEDS: POTASSIUM CHLORIDE 20 MEQ TABLET 40 MEQ PO (10:15)
== END 2021-05-01 10:20 | disposition home or self-care (01) | DRG 440 ==
LOC: ANHED 22:11 → ANH2MED 22:52
PROVIDERS: Emergency Medicine; Physician Assistant; Admitting Provider Internal Medicine; Emergency Provider Family Medicine; PCP Emergency Medicine; Visit Provider Family Medicine
DX: K85.90 Acute pancreatitis without necrosis or infection, unspecified (principal); F12.90 Cannabis use, unspecified, uncomplicated; E87.6 Hypokalemia
CPT/HCPCS: 36415; 71046; 74177; 76705; 80053; 80061; 81001; 83690; 84484; 85025; 85380; 85610; 85730; 93005; 96360; 96361; 96365; 96372; 96374; 96375; 96376; 99285; A9270; G0378; J0131; J1170; J1650; J1885; J2270; J2405; J7030; Q9967

== ENCOUNTER 2024-08-17 08:13 | Emergency (ER) | payer OTHER, SELFPAY ==
[2024-08-17] VITALS (7 sets, daily range): BP systolic 137–159; BP diastolic 83–94; PULSE 71–102; RESP 11–20; O2SAT 97–99
--- NOTE | ~2024-08-17 | XR_ITS ---
Clinical Indication: Chest pain PA and lateral views of the chest: Comparison: 04/26/2021 Findings: The lungs are clear, without evidence of focal consolidation or pleural effusion. Cardiome diastinal silhouette is within normal limits. Bones and soft tissues are unremarkable. Impression: Normal chest. Reviewed, dictated and finalized at location . Impression: Normal chest.
--- NOTE | 2024-08-17 08:18 | ECG_ITS ---
Test Date: 2024-08-17 08:25:45 Measurements Intervals [place] Rate: 103 P: 60 WA: 131 QRS: 61 QRSD: 85 T: 42 QT: 329 QTc: 431 Interpretive Statements SINUS TACHYCARDIA POSSIBLE LEFT ATRIAL ENLARGEMENT BASELINE ARTIFACT- II, III BORDERLINE ECG No previous ECG available for comparison Electronically Signed On 08-17-2024 08:26:48 CDT by Cassius Mejia D.O.
--- OUTSIDE RECORDS SUMMARY | 2024-08-17 08:25 | XMS_ITS | Clinical Summary ---
Author Organization [facility] Address [address] [place] [address] Care Team Providers Care Cooker Cleaner Name Role Phone Unavailable Primary Care Provider Unavailabl e Source Comments [facility],non-owned Affiliates and Associated Physician Practices is amultiple site organization consisting of ambulatory clinics and hospital sitesin [place], [place], [place] and [place]. This disclosure is being madepursuant to the Care Everywhere program and may not contain all information available regarding this patient. Last updated 18.[employer] [facility] Allergies No known active allergies Medications Be aware that medications may not be up to date on this document. Always verify current medications with the patient. No known medications Active Problems No known active problems Immunizations Name Administration Dates Next Due DTaP VACCINE IM (6wk-6yrs) 11/26/2001,,1996,08/27,1996 HEP A PEDS 2 DOSE 10/28/2012,11/30/2011 HEP B VACCINE, PED/ADOL 01/15/1997,1996, HIB-PRP-T 4 DOSE 11/04/1997, 7,1996,07/02 Human Papilloma Virus Sally valent Vaccine 12/18/2013,10/28/2012 MENINGOCOCAL MENINGITIS 11/22/2010 MENINGOCOCCAL ACWY (MCV4P) VAC IM 11/23/2008 MMR 11/26/2001,11/04/1997 POLIO IPV 11/26/2001,1996,1996 POLIO OPV 1996 TDAP (7yrs+) 11/23/2008 VARICELLA 11/30/2011,05/04/1997 Family History Medical History Relation Name Comments Diabetes Maternal Grandfather Hypertension Maternal Grandfather Arthritis - Osteo Maternal Grandmother Relation Name Status Comments Brother Alive Father Alive Maternal Grandfather Alive Maternal Grandmother Alive Mother Alive Paternal Grandfather Alive Paternal Grandmother Alive Sister Alive Social History Tobacco Use Types Packs/Day Years Used Date Smoking Tobacco: Never Smokeless Tobacco: Never Alcohol Use Standard Drinks/Week Comments Yes 0 (1 standard drink = 0.6 oz pur e alcohol) occasional, has tried Sex and Gender Information Value Date Recorded Sex Assigned at Not on file Gender Identity Not on file Sexual Orientation Not on file Last Filed Vital Signs Vital Sign Reading Time Taken Comments Blood Pressure 126/80 12/18/2013 2:04 PM CDT Pulse 60 12/18/2013 2:04 PM CDT Temperature 37.1 C (98.7 F) 12/18/2013 2:04 PM CDT Respiratory Rate - - Oxygen Saturation - - Inhaled Oxygen Concentration - - Weight 84.9 kg (187 lb 3.2 oz) 12/18/2013 2:04 P M CDT Height 186.7 cm (6' 1.5 ) 12/18/2013 2:04 PM CDT Body Mass Index 24.36 12/18/2013 2:04 PM CDT Plan of Treatment Health Maintenance Due Date Last Done Comments HIV SCREENING 2011 HPV VACCINE (3 - Male 3-dose series) 03/12/2014 12/18/2013, 10/28/2012 HEPATITIS C SCREENING 05/01/2014 DTAP/TDAP/TD VACCINES (7 - Td or Tdap) 11/23/2018 11/23/2008, 11/26/2001, 11/04/1997, Additional history exists COVID-19 VACCINE (1 - 2023- season) 2024 DEPRESSION SCREENING 05/13/2024 INFLUENZA VACCINE (Season Ended) 2025 ZOSTER VACCINE (1 of 2) 2046 HEPATITIS B VACCINE Completed 01/15/1997, 1996, 1996 HIB VACCINE Completed 11/04/1997, 10/11, 1996, Additional history exists MENINGOCOCCAL GROUPS A/C/Y/W VACCINE Aged Out 11/22/2010, 11/23/2008 No longer eligibl e based on patient's age to complete this topic MENINGOCOCCAL (Group B) VACCINE SHARED DECISION-MAKING Aged Out No longer eligible based on patient's age to complete this topic PNEUMOCOCCAL VACCINE Aged Out No long er eligible based on patient's age to complete this topic
--- OUTSIDE RECORDS SUMMARY | 2024-08-17 08:25 | XMS_ITS | Clinical Summary ---
Author Organization [facility] Address [address] [place] [address] Care Team Providers Care Machine Clerical Verifier Name Role Phone Cliff Nielson Primary Care Provider Encounters Date Type Department Care Team Description 08/05/2024 8:29 AM CDT - 08/05/2024 11:59 PM CDT Hospital Encounter [facility] [address] [place] [address] Cliff Nielson PA Discharge Disposition: Home or Self Care (Routine Discharge) 08/05/2024 Travel from Last 3 Months Social History Tobacco Use Types Packs/Day Years Used Date Smoking Tobacco: Never Assessed Sex and Gender Information Value Date Recorded Sex Assigned at Not on file Legal 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 Gender Identity Not on file Sexual Orientation Not on file Plan of Treatment Health Maintenance Due Date Last Done Comments Annual Physical 1999 HPV Vaccines (3 - Male 3-dose series) 03/12/2014 12/18/2013, 10/28/2012 Hepatitis C 2014 DTaP, Tdap and Td Vaccines (7 - Td or Tdap) 11/23/2018 11/23/2008, 11/26/2001, 11/04/1997, Additional history exists COVID-19 Vaccine ( season) 2024 Hepatitis B Vaccines Completed 01/15/1997, 1996, 1996 Meningococcal Vaccine Aged Out 11/22/2010, 009 No longer eligible based on patient's age to complete this topic Meningococcal B Vaccine Aged Out No l onger eligible based on patient's age to complete this topic Pneumococcal Vaccine: Pediatrics (0 to 5 Years) and At-Risk Patients (6 to 64 Years) Aged Out No longer eligible based on patient's age to complete this topic RSV Immunizations Under 20 Months Aged Out No longer eligible based on patient's age to complete this topic Procedures Procedure Name Priority Date/Time Associated Diagnosis Comments US SOFT TISS HEAD OR NECK Routine 08/05/2024 9:06 AM CDT Mass of skin of back from Last 3 Months Results * US SOFT TISS HEAD OR NECK (08/05/2024 9:06 AM CDT) Anatomical Region Laterality Modality Head, Neck Ultrasound 08/05/2024 11:0 5 AM CDT Impressions 08/05/2024 11:34 AM CDT IMPRESSION: Nonaggressive appearing but objectively nonspecific solid masses at the sites of concern. Clinical correlation is required with further management guided on that basis. Ordered By: CLIFF NIELSON Interpreted By: Иван Pelletier MD, 08/05/2024 11:05 AM Narrative 08/05/2024 11:34 AM CDT [address] [place] [address] Examination: Ultrasound of the soft tissues of the right lower back. Exam time: 0844 hours. Clinical history: Two palpable lumps with tenderness to palpation. Comparison: None. Technique: Grayscale and color Doppler images. Findings: Evaluation at the indicated sites of concern demonstrates well-circumscribed mildly heterogeneous isoechoic solid masses oriented parallel to the skin surface measuring approximately 3 x 1 x 3.6 cm and 2.7 x 1.9 x 3.7 cm. There is minimal internal color flow on Doppler. There is neither clear cut posterior acoustical shadowing nor posterior acoustical enhancement. [place] appearing tissue architecture is otherwise demonstrated. No other sonographically discrete finding is identified. Although statistically most likely represent lipomas, the masses are objectively nonspecific. Clinical correlation is required with further management guided on that basis. Procedure Note Иван Pelletier MD - 08/05/[address] [place] [address] Examination: Ultrasound of the soft tissues of the right lower back. Exam time: 0844 hours. Clinical history: Two palpable lumps with tenderness to palpation. Comparison: None. Technique: Grayscale and color Doppler images. Findings: Evaluation at the indicated sites of concern demonstrateswell- circumscribed mildly heterogeneous isoechoic solid masses orientedparallel to the skin surface measuring approximately 3 x 1 x 3.6 cm and2.7 x 1.9 x 3.7 cm. There is minimal internal color flow on Doppler. Thereis neither clear cut posterior acoustical shadowing nor posterioracoustical enhancement. [place] appearing tissue architecture is otherwisedemonstrated. No other sonographically discrete finding is identified. Although statistically most likely represent lipomas, the masses areobjectively nonspecific. Clinical correlation is required with furthermanagement guided on that basis. IMPRESSION: Nonaggressive appearing but objectively nonspecific solid masses at thesites of concern. Clinical correlation is required with further managementguided on that basis. Ordered By: CLIFF NIELSON Interpreted By: Иван Pelletier MD, 08/05/2024 11:05 AM [facility] Final Result from Last 3 Months Insurance [facility] Care Teams Machine Clerical Verifier Relationship Specialty Start Date End Date Cliff Nielson PA [address] [place] [id number] PCP - General PHYSICIAN BELLMAN 08/05/24
[2024-08-17] MEDS: ASPIRIN 81 MG CHEWABLE TABLET 324 MG PO (08:29)
[2024-08-17 08:40] LABS: Basophils Absolute Auto 0.1 K/mm3 (0.0-0.1); Basophils Percent Auto 0.5 % (0.2-1.2); Eosinophils Absolute Auto 0.2 K/mm3 (0-0.3); Eosinophils Percent Auto 1.6 % (0-4.4); Hematocrit 46.9 % (42.0-52.0); Hemoglobin 15.6 g/dL (14.0-18.0); Immature Granulocyte Absolute 0.05 K/mm3 (0.00-0.031); Immature Granulocyte Percent A 0.4 % (0-0.5); Lymphocytes Absolute Auto 2.23 K/mm3 (0.9-3.2); Lymphocytes Percent Auto 17.3 % (18.3-44.2); Mean Corpuscular HGB Conc 33.3 g/dl (32-36); Mean Corpuscular Hemoglobin 29.9 pg (26-34); Mean Corpuscular Volume 89.8 fl (80-100); Mean Platelet Volume 10.1 fl (7.4-10.4); Monocytes Absolute Auto 0.9 K/mm3 (0.1-0.6); Monocytes Percent Auto 7.2 % (2.6-8.5); Neutrophils Absolute Auto 9.4 K/mm3 (1.3-6.7); Platelet Count Result 283 k/mm3 (150-375); Red Blood Count 5.22 M/mm3 (4.6-6.20); Red Cell Distribution Width 12.6 % (11.5-14.5); White Blood Count 12.9 K/mm3 (4.5-10.0)
[2024-08-17 08:50] LABS: Alanine Aminotransferase 26 U/L (6-50); Albumin Level 4.7 g/dL (3.5-5.1); Alkaline Phosphatase 112 U/L (38-126); Anion Gap 10 mmol/L (4-12); Aspartate Amino Transferase 30 U/L (17-59); Bilirubin,Total 1.1 mg/dL (0.2-1.3); Blood Urea Nitrogen 20 mg/dL (9-20); Calcium 9.4 mg/dL (8.4-10.2); Carbon Dioxide 26 mmol/L (22-30); Chloride 102 mmol/L (98-107); Estimated CRCL calculation 121 ml/min; Estimated Glomerular Filt Rate > 60; Glucose 123 mg/dL (65-110); Lipase 46 U/L (23-300); Sodium 138 mmol/L (137-145)
[2024-08-17 08:54] LABS: Prothrombin Time 13.7 Seconds (11.1-14.7)
[2024-08-17 08:55] LABS: Partial Thromboplastin Time 26.9 Seconds (22.3-36.8)
[2024-08-17] MEDS: KETOROLAC 30 MG/ML VIAL (*BKC) IV PUSH (08:59)
[2024-08-17 09:01] LABS: D Dimer 0.34 ug/mL (<0.48); Troponin I < 0.012 ng/mL (0.000-0.034)
--- OUTSIDE RECORDS SUMMARY | 2024-08-17 10:06 | XMS_ITS | Clinical Summary ---
Author Organization [facility] Address [address] [place] [address] Care Team Providers Care Laborer Driver Name Role Phone Cliff Nielson Primary Care Provider [phone] Encounters Date Type Department Care Team Description 08/05/2024 8:29 AM CDT - 08/05/2024 11:59 PM CDT Hospital Encounter [facility] [address] [place] [address] Cliff Nielson PA Discharge Disposition: Home or Self Care (Routine Discharge) 08/05/2024 Travel from Last 3 Months Social History Tobacco Use Types Packs/Day Years Used Date Smoking Tobacco: Never Assessed Sex and Gender Information Value Date Recorded Sex Assigned at Not on file 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 [address] Examination: Ultrasound of the soft tissues of [...] posterior acoustical shadowing nor posterior acoustical enhancement. [place] appearing tissue architecture is otherwise demonstrated. No other sonographically discrete finding is identified. Although statistically most likely represent lipomas, the masses are objectively nonspecific. Clinical correlation is required with further management guided on that basis. Procedure Note Иван Pelletier MD - 08/05/[address] [place] [address] Examination: Ultrasound of the soft tissues of [...] cut posterior acoustical shadowing nor posterioracoustical enhancement. [place] appearing tissue architecture is otherwisedemonstrated. No other [...] Final Result from Last 3 Months Insurance [employer] Care Teams Laborer Driver Relationship Specialty Start Date End Date Cliff Nielson PA [address] [place] [phone] PCP - General PHYSICIAN PATIENT SUPPORT TECH 08/05/24
--- OUTSIDE RECORDS SUMMARY | 2024-08-17 10:06 | XMS_ITS | Clinical Summary ---
Author Organization [facility] Address [address] [place] [address] Care Team Providers Care Carpenters Name Role Phone Unavailable Primary Care Provider Unavailabl e Source Comments [facility],non-owned Affiliates and Associated Physician Practices is amultiple site organization consisting of ambulatory clinics and hospital sitesin [place], [place] and [place]. This disclosure is being madepursuant to the Care Everywhere program and may not contain all information available regarding this patient. Last updated 18.[employer] [facility] Allergies No known active allergies Medications Be [...]
[2024-08-17 12:42] LABS: Troponin I < 0.012 ng/mL (0.000-0.034)
--- NOTE | 2024-08-17 12:55 | ED.CHESTPAIN ---
HPI - Chest Pain General Chief Complaint: Chest Pain Stated Complaint: chest pain x2days Time Seen by Provider: 08/17/24 08:21 History of Present Illness HPI narrative: Patient is a 29-year-old male who presents ER with left-sided chest pain. Around the pectoralis muscle. Worse with physical movements and while he was at work today increases discomfort. No difficulty breathing. No fevers or chills or sweats. No known sick contacts. No known trauma. Is not taking pain medication. Related Data Allergies Allergy/AdvReac Type Severity Reaction Status Date / Time No Known Allergies Allergy Verified 08/17/24 08:31 Review of Systems Review of Systems: All systems reviewed & are unremarkable except as noted in HPI and below Constitutional: Constitutional: Reports no additional constitutional complaints Cardiovascular: Cardiovascular: Reports no additional cardiovascular complaints Respiratory: Respiratory: Reports no additional respiratory complaints Gastrointestinal: Gastrointestinal: Reports no additional gastrointestinal complaints [facility] Past Medical History Medical History (Updated 08/17/24 @ 13:00 by Joseph Alcazar MD) No active medical problems Surgical History Surgical History (Updated 04/27/21 @ 12:58 by Leena Zamora, RICARDO) H/O hand surgery Family History Family History Other Unknown family medical history Social History Social History (Updated 04/27/21 @ 12:59 by Leena Zamora, RICARDO) Smoking status: Never smoker Alcohol intake: never Alcohol use details: very rare, maybe 1-2 beers once or twice per year Substance use: current Substance use type: marijuana Last use: 04/23/21 Spiritual care concerns: No Exam Narrative: GENERAL: Well-appearing, well-nourished, and in no acute distress. HEAD: Normocephalic, atraumatic. ENT: Mucous membranes moist. CHEST: Clear to auscultation. No respiratory distress. HEART: Regular rate and rhythm. Normal peripheral pulses. ABDOMEN: Soft, nontender, nondistended. EXTREMITIES: Normal range of motion. No edema. SKIN: Warm, dry, no rash. NEURO: Alert and oriented x3. PSYCH: Normal mood and affect. Course Course Emergency Course: Patient resting comfortably. Pain improving with Toradol. Troponin negative x2. Appropriate for discharge home. Vital Signs Vital signs: Vital Signs Pulse Rate 97 08/17/24 08:19 Respiratory Rate 16 08/17/24 08:19 Blood Pressure 152/87 H 08/17/24 08:19 Pulse Oximetry 97 08/17/24 08:19 Oxygen Delivery Room Air 08/17/24 08:19 Pulse Rate 73 08/17/24 12:15 Respiratory Rate 20 08/17/24 12:15 Blood Pressure 152/87 H 08/17/24 12:15 Pulse Oximetry 97 08/17/24 12:15 Oxygen Delivery Room Air 08/17/24 08:30 MDM - Chest Pain Lab Data 08/17/24 08:27 08/17/24 08:27 Labs: Lab Results 08/17/24 08/17/24 Range/Units 08:27 11:16 WBC 12.9 H (4.5-10.0) K/mm3 RBC 5.22 (4.6-6.20) M/mm3 Hgb 15.6 (14.0-18.0) g/dL Hct 46.9 (42.0-52.0) % MCV 89.8 (80-100) fl MCH 29.9 (26-34) pg MCHC 33.3 (32-36) g/dl RDW 12.6 (11.5-14.5) % Plt Count 283 (150-375) k/mm3 MPV 10.1 (7.4-10.4) fl Immature Gran % (Auto) 0.4 (0-0.5) % Neut % (Auto) 73.0 (45.5-73.1) % Lymph % (Auto) 17.3 L (18.3-44.2) % [place] % (Auto) 7.2 (2.6-8.5) % Eos % (Auto) 1.6 (0-4.4) % Baso % (Auto) 0.5 (0.2-1.2) % Lymph # (Auto) 2.23 (0.9-3.2) K/mm3 [place] # (Auto) 0.9 H (0.1-0.6) K/mm3 Eos # (Auto) 0.2 (0-0.3) K/mm3 Baso # (Auto) 0.1 (0.0-0.1) K/mm3 Abs Immat Gran (auto) 0.05 H (0.00-0.031) K/mm3 Absolute Neuts (auto) 9.4 H (1.3-6.7) K/mm3 Absolute Nucleated RBC 0.000 (0.0-0.012) K/mm3 Nucleated RBC % 0.0 (0.0-0.2) % PT 13.7 (11.1-14.7) Seconds INR 1.0 APTT 26.9 (22.3-36.8) Seconds D-Dimer 0.34 (<0.48) ug/mL Sodium 138 (137-145) mmol/L Potassium 4.0 (3.4-5.0) mmol/L Chloride 102 (98-107) mmol/L Carbon Dioxide 26 (22-30) mmol/L Anion Gap 10 (4-12) mmol/L BUN 20 D (9-20) mg/dL Creatinine 1.07 (0.7-1.3) mg/dL Estim Creat Clear Calc 121 ml/min Estimated GFR > 60 (59 - ) Glucose 123 H (65-110) mg/dL Calcium 9.4 (8.4-10.2) mg/dL Total Bilirubin 1.1 (0.2-1.3) mg/dL AST 30 (17-59) U/L ALT 26 (6-50) U/L Alkaline Phosphatase 112 (38-126) U/L Troponin I < 0.012 < 0.012 (0.000-0.034) ng/mL Total Protein 8.0 (6.3-8.2) g/dL Albumin 4.7 (3.5-5.1) g/dL Lipase 46 (23-300) U/L Imaging Data Radiologist's impression: ITS Impressions Chest X-Ray 08/17/24 08:50 Impression: Normal chest. ECG Data EKG #1: ECG completion date: 08/17/24 ECG completion time: 08:25 EKG Interpretation: tachycardia (103), sinus rhythm, no ST changes, normal QRS, normal QT and NL axis Discharge Plan Discharge Clinical Impression: Chest pain, musculoskeletal Patient Disposition: Home Condition: Stable Instructions: Chest Wall Pain (ED) Additional Instructions: Please return to the emergency department if you develop severe and persistent chest pain, difficulty breathing, dizziness, leg swelling or if you are coughing up blood as these can be signs of a medical emergency. Please call your doctor for a follow up appointment to determine the need for further testing. Patient Language: Welsh Prescriptions: New naproxen 375 mg tablet 375 mg PO BID Qty: 14 0RF No Action hydrocodone-acetaminophen 5-325 mg tablet 1 tablet PO Q4H PRN (Reason: pain) Qty: 10 0RF Follow-up/Referrals: Lidia,RICARDO Coronado [Primary Care Provider] - 1 Week Quality HEART score for chest pain patients History: slightly suspicious ECG: normal Age: < or = to 45 years Risk factors: no risk factors known Troponin: < or = to 1x normal limit Heart score: 0
== END 2024-08-17 13:10 | disposition home or self-care (01) ==
PROVIDERS: Emergency Provider Emergency Medicine; PCP Physician Assistant
DX: R07.89 Other chest pain (principal); R94.31 Abnormal electrocardiogram [ECG] [EKG]; R00.0 Tachycardia, unspecified
CPT/HCPCS: 36415; 71046; 80053; 83690; 84484; 85025; 85380; 85610; 85730; 93005; 96361; 96374; 99284; A9270; J1885